=== PATIENT | male | born 1990 | race Caucasian/White ===

== ENCOUNTER → 2019-07-17 | Outpatient (CLI) | payer OTHER ==
[~2019-07-17] MED LIST: GABA-843; GABA-843 PO; LIDO4CRE4 TOP; METH1TAB40 PO; PRED20TA PO
[2019-07-17 12:10] LABS: PLATELET COUNT, AUTOMATED 322 10^3/uL (150-450)
[2019-07-17 12:19] LABS: INR 0.99; PROTHROMBIN TIME 12.8 SECONDS (11.8-14.0)
[2019-07-17 12:20] LABS: PARTIAL THROMBOPLASTIN TIME 27.5 SECONDS (25.0-38.4)
== END ==
LOC: M WUC 10:11
PROVIDERS: ATTEND Physician Assistant
DX: Z01.812 Encounter for preprocedural laboratory examination (principal); M47.27 Other spondylosis with radiculopathy, lumbosacral region

== ENCOUNTER → 2019-12-11 | Outpatient (CLI) | payer OTHER | LOC: EDBD 09:34 → M LABSMTC 09:34 | PROVIDERS: ATTEND Physician Assistant | DX: Z03.818 Encounter for observation for suspected exposure to other biological agents ruled out (principal); Z11.59 Encounter for screening for other viral diseases ==

== ENCOUNTER → 2020-10-06 | Outpatient (CLI) | payer OTHER ==
[~2020-10-06] MED LIST changes: +GABA-282; +GABA-282 PO; -GABA-843; -GABA-843 PO; +METH-1164 PO; -METH1TAB40 PO
--- NOTE | 2020-10-06 18:36 | REPVR ---
PROCEDURE INFORMATION: Exam: MR Lumbar Spine Without Contrast Exam date and time: 10/06/2020 3:21 PM Age: 29 years old Clinical indication: Low back pain; Additional info: Spinal stenosis TECHNIQUE: Imaging protocol: Multiplanar magnetic resonance images of the lumbar spine without intravenous contrast. COMPARISON: No relevant prior studies available. FINDINGS: Vertebrae: The lumbar vertebral bodies are normal in height. Mild retrolisthesis of L5 on S1. Spinal cord: The distal end of the conus medullaris ends at L1-L2, normal in position. Multilevel findings: Degenerative disc disease is noted at L5-S1, with a decrease in the T2 signal intensity of the discs as well as disc bulge/osteophyte complexes. L1-L2: Mild bilateral facet arthropathy. There is no significant narrowing of the thecal sac or neural foramina. L2-L3: Mild bilateral facet arthropathy. There is no significant narrowing of the thecal sac or neural foramina. L3-L4: Mild bilateral facet arthropathy. There is no significant narrowing of the thecal sac or neural foramina. L4-L5: Mild bilateral facet arthropathy. There is no significant narrowing of the thecal sac or neural foramina. L5-S1: Modic endplate changes visualized. A broad-based central disc herniation/extrusion is identified causing effacement of the anterior epidural fat and flattening of the ventral border of the thecal sac. This herniation encroaches on the bilateral S1 nerve roots within the lateral recesses, with mild compression on the right side. Moderate bilateral neural foraminal narrowing. Soft tissues: No significant paraspinal swelling. IMPRESSION: 1. Degenerative changes are noted diffusely within the lumbar spine, most significant at L5-S1. 2. At L5-S1, a broad-based central disc herniation/extrusion is identified causing flattening of the ventral border of the thecal sac. This herniation encroaches on the bilateral S1 nerve roots within the lateral recesses, with mild compression on the right side. Moderate bilateral neural foraminal narrowing. 3. Mild retrolisthesis of L5 on S1. Electronically signed by: Van Winter On 10/06/2020 18:36:21 PM
== END ==
LOC: M RAD 13:52
PROVIDERS: ATTEND Physical Medicine & Rehabilitation
DX: M48.07 Spinal stenosis, lumbosacral region (principal); M51.37 Other intervertebral disc degeneration, lumbosacral region

== ENCOUNTER → 2021-12-20 | Outpatient (CLI) | payer OTHER ==
[2021-12-20 16:32] LABS: PLATELET COUNT, AUTOMATED 392 10^3/uL (150-450)
[2021-12-20 16:46] LABS: INR 0.88; PROTHROMBIN TIME 12.3 SECONDS (12.7-14.5)
== END ==
LOC: M LAB 15:47
PROVIDERS: ATTEND Physician Assistant
DX: M51.16 Intervertebral disc disorders with radiculopathy, lumbar region (principal)